=== PATIENT | male | born 1960 | race African-American/Black ===

== ENCOUNTER 2021-05-21 01:26 | Inpatient (IN) | payer MEDICARE, MEDICAID ==
[~2021-05-21] VITALS: Ht 177.8 cm; Wt 108.9 kg
[~2021-05-21 01:26] MED LIST: AMLO-258 PO; ASPI-1198 PO; DIVA-80 PO; FOLI-130 PO; LEVO25TA9 PO; NACL1 PO; OLAN7.5T22 PO; PHEN100C23 PO
[2021-05-21 02:10] LABS: BASOPHILS % (AUTO) 0.2 % (0.0-2.0); EOSINOPHILS % (AUTO) 1.2 % (1.0-6.0); HEMATOCRIT 34.1 % (41-53); HEMOGLOBIN 10.7 g/dL (13.5-17.5); LYMPHOCYTES % (AUTO) 26.2 % (22.0-44.0); MEAN CORPUSCULAR HEMOGLOBIN 29.2 pg (26.0-34.0); MEAN CORPUSCULAR HGB CONC 31.5 G/dL (31.0-37.0); MEAN CORPUSCULAR VOLUME 93 fL (80-100); MONOCYTES # (AUTO) 0.8 K/uL (0.1-1.0); MONOCYTES % (AUTO) 10.3 % (2.0-9.0); NEUTROPHILS # (AUTO) 4.8 K/uL (1.8-7.7); NEUTROPHILS % (AUTO) 62.1 % (40.0-70.0); PLATELET COUNT (AUTO) 214 K/uL (150-450); RED BLOOD CELL COUNT(AUTO) 3.68 MIL/uL (4.50-5.90); RED CELL DISTRIBUTION WIDTH 13.3 % (11.5-14.5)
[2021-05-21 02:15] LABS: ANION GAP 6 mmol/L (8-16); CALCIUM, TOTAL 8.5 mg/dL (8.8-10.5); CARBON DIOXIDE 29 mmol/L (22-29); CHLORIDE 107 mmol/L (98-107); GLOMERULAR FILTR. RATE CALC > 60 mL/min (>60); GLUCOSE,RANDOM 103 mg/dL (70-110); POTASSIUM 3.5 mmol/L (3.5-5.1); SODIUM SERUM 142 mmol/L (136-145); UREA NITROGEN, BLOOD 26 mg/dL (7-18)
[2021-05-21 02:20] LABS: ALANINE AMINOTRANSFERASE 26 U/L (12-78); ALBUMIN 3.7 g/dL (3.4-5.0); ALKALINE PHOSPHATASE 72 U/L (46-116); ASPARTATE AMINOTRANSFERASE 18 U/L (15-37); BILIRUBIN,TOTAL 0.4 mg/dL (0.1-1.0); TOTAL PROTEIN, SERUM 7.1 g/dL (6.4-8.2)
[2021-05-21 02:24] LABS: COVID AG,FIA SOURCE NASOPHARYNGEAL
[2021-05-21] MEDS ORDERED: OLANZapine 5 MG RAPDIS TABLET PO PRN (02:30)
[2021-05-21] MEDS ORDERED: ZOLPIDEM TARTRATE 10 MG TABLET PO PRN (02:30)
[2021-05-21] MEDS ORDERED: LORazepam 2 MG TABLET PO PRN (02:30)
[2021-05-21 04:12] LABS: CREATINE KINASE, TOTAL ONLY 295 U/L (39-308); FREE T4 (FREE THYROXINE) 1.01 ng/dL (0.76-1.46); THYROID STIMULATING HORMONE 3.16 uIU/mL (0.36-3.74)
[2021-05-21 04:14] LABS: VALPROIC ACID < 3 mcg/mL (50-100)
[2021-05-21 04:15] LABS: B-TYPE NATRIURETIC PEPTIDE 8 pg/mL (0-100)
[2021-05-21] MEDS ORDERED: MAGNESIUM HYDROXIDE SUSPENSION 30 ML UDCUP PO PRN (08:45)
[2021-05-21] MEDS ORDERED: LOPERAMIDE HCL 2 MG CAPSULE PO PRN (08:45)
[2021-05-21] MEDS ORDERED: MAG HYDROX/AL HYDROX/SIMETH ES 30 ML SUSPENSION UDCUP PO PRN (08:45)
[2021-05-21] MEDS ORDERED: PALIPERIDONE PALMITATE 234 MG/1.5 ML SYRINGE IM ONE (08:45)
[2021-05-21] MEDS ORDERED: CYANOCOBALAMIN 1,000 MCG/ML VIAL IM ONE (08:45)
[2021-05-21] MEDS ORDERED: GuaiFENesin/D-METHORPHAN [SUGAR-FREE] 200-20MG/10 ML SYRUP UDCUP PO PRN (08:45)
[2021-05-21] MEDS ORDERED: PROMETHAZINE HCL 25 MG TABLET PO PRN (08:45)
[2021-05-21] MEDS ORDERED: HydrOXYzine PAMOATE 50 MG CAPSULE PO PRN (08:45)
[2021-05-21] MEDS ORDERED: TUBERCULIN, PURIFIED PROTEIN DERIVATIVE 5 TU/0.1 ML SYRINGE ID ONE (08:45)
[2021-05-21] MEDS ORDERED: ACETAMINOPHEN 325 MG TABLET PO PRN (08:45)
[2021-05-21] MEDS: THIAMINE 100 MG TABLET PO SCH ×2 (09:00→16:57)
[2021-05-21 10:00] VITALS: BP 153/98
[2021-05-21] MEDS: OMEGA-3/DHA/EPA/FISH OIL 1,000 MG CAPSULE PO SCH (12:38)
[2021-05-21] MEDS: PHENYTOIN SODIUM 100 MG ER CAPSULE PO SCH ×2 (12:38→16:57)
[2021-05-21] MEDS: NALTREXONE HCL 50 MG TABLET PO SCH (12:38)
[2021-05-21] MEDS: FOLIC ACID 1 MG TABLET PO SCH (12:39)
[2021-05-21] MEDS: MULTIVITAMINS WITH MINERALS, THERAPEUTIC TABLET PO SCH (12:39)
[2021-05-21] MEDS ORDERED: CloNIDine HCL 0.1 MG TABLET PO PRN (13:30)
[2021-05-21] MEDS ORDERED: PHENYTOIN SODIUM 100 MG ER CAPSULE PO SCH (17:00)
[2021-05-21 17:02] VITALS: BP 173/98
[2021-05-21] MEDS: AmLODIPine BESYLATE 10 MG TABLET PO SCH (17:05)
[2021-05-21] MEDS: DIVALPROEX SODIUM 500 MG ER TABLET PO SCH (20:08)
[2021-05-21] MEDS: MELATONIN 5 MG TABLET PO SCH (20:08)
[2021-05-21] MEDS: OLANZapine 5 MG RAPDIS TABLET PO SCH (20:08)
[2021-05-21 20:36] VITALS: BP 130/75
[2021-05-22 02:38] VITALS: BP 136/88
[2021-05-22] MEDS: LEVOTHYROXINE SODIUM 25 MCG TABLET PO SCH (06:44)
[2021-05-22] MEDS: OMEGA-3/DHA/EPA/FISH OIL 1,000 MG CAPSULE PO SCH (08:57)
[2021-05-22] MEDS: THIAMINE 100 MG TABLET PO SCH ×2 (08:57→17:00)
[2021-05-22] MEDS: NALTREXONE HCL 50 MG TABLET PO SCH (08:57)
[2021-05-22] MEDS: MULTIVITAMINS WITH MINERALS, THERAPEUTIC TABLET PO SCH (08:57)
[2021-05-22] MEDS: FOLIC ACID 1 MG TABLET PO SCH (08:57)
[2021-05-22] MEDS: AmLODIPine BESYLATE 10 MG TABLET PO SCH (08:57)
[2021-05-22] MEDS: PHENYTOIN SODIUM 100 MG ER CAPSULE PO SCH ×2 (08:57→17:01)
[2021-05-22] MEDS: FLUoxetine HCL 10 MG CAPSULE PO SCH (08:58)
[2021-05-22 09:08] VITALS: BP 116/67
[2021-05-22 16:27] VITALS: BP 127/64
[2021-05-22] MEDS: DIVALPROEX SODIUM 500 MG ER TABLET PO SCH (20:22)
[2021-05-22] MEDS: MELATONIN 5 MG TABLET PO SCH (20:22)
[2021-05-22] MEDS: OLANZapine 5 MG RAPDIS TABLET PO SCH (20:22)
[2021-05-23 00:51] VITALS: BP 119/67
[2021-05-23] MEDS: LEVOTHYROXINE SODIUM 25 MCG TABLET PO SCH (06:30)
[2021-05-23 08:24] VITALS: BP 138/97
[2021-05-23] MEDS: MULTIVITAMINS WITH MINERALS, THERAPEUTIC TABLET PO SCH (09:17)
[2021-05-23] MEDS: OMEGA-3/DHA/EPA/FISH OIL 1,000 MG CAPSULE PO SCH (09:17)
[2021-05-23] MEDS: AmLODIPine BESYLATE 10 MG TABLET PO SCH (09:17)
[2021-05-23] MEDS: THIAMINE 100 MG TABLET PO SCH ×2 (09:18→16:36)
[2021-05-23] MEDS: PHENYTOIN SODIUM 100 MG ER CAPSULE PO SCH ×2 (09:18→16:37)
[2021-05-23] MEDS: FLUoxetine HCL 10 MG CAPSULE PO SCH (09:18)
[2021-05-23] MEDS: FOLIC ACID 1 MG TABLET PO SCH (09:18)
[2021-05-23] MEDS: NALTREXONE HCL 50 MG TABLET PO SCH (09:18)
[2021-05-23 16:25] VITALS: BP 140/83
[2021-05-23] MEDS: DIVALPROEX SODIUM 500 MG ER TABLET PO SCH (20:10)
[2021-05-23] MEDS: MELATONIN 5 MG TABLET PO SCH (20:10)
[2021-05-23] MEDS: OLANZapine 5 MG RAPDIS TABLET PO SCH (20:10)
[2021-05-24 01:05] VITALS: BP 126/79
[2021-05-24] MEDS: LEVOTHYROXINE SODIUM 25 MCG TABLET PO SCH (06:41)
[2021-05-24] MEDS: THIAMINE 100 MG TABLET PO SCH ×2 (09:54→16:39)
[2021-05-24] MEDS: OMEGA-3/DHA/EPA/FISH OIL 1,000 MG CAPSULE PO SCH (09:54)
[2021-05-24] MEDS: NALTREXONE HCL 50 MG TABLET PO SCH (09:54)
[2021-05-24] MEDS: AmLODIPine BESYLATE 10 MG TABLET PO SCH (09:54)
[2021-05-24] MEDS: PHENYTOIN SODIUM 100 MG ER CAPSULE PO SCH ×2 (09:54→16:39)
[2021-05-24] MEDS: FLUoxetine HCL 10 MG CAPSULE PO SCH (09:55)
[2021-05-24] MEDS: MULTIVITAMINS WITH MINERALS, THERAPEUTIC TABLET PO SCH (09:55)
[2021-05-24] MEDS: FOLIC ACID 1 MG TABLET PO SCH (09:55)
[2021-05-24] MEDS: DIVALPROEX SODIUM 500 MG ER TABLET PO SCH (20:39)
[2021-05-24] MEDS: MELATONIN 5 MG TABLET PO SCH (20:39)
[2021-05-24] MEDS: OLANZapine 5 MG RAPDIS TABLET PO SCH (20:39)
[2021-05-24] MEDS ORDERED: LORazepam 0.5 MG TABLET PO PRN (22:30)
[2021-05-25] MEDS: LEVOTHYROXINE SODIUM 25 MCG TABLET PO SCH (06:48)
[2021-05-25 08:33] VITALS: BP 131/87
[2021-05-25] MEDS ORDERED: PALIPERIDONE PALMITATE 156 MG/ML SYRINGE IM ONE (09:00)
[2021-05-25] MEDS: PHENYTOIN SODIUM 100 MG ER CAPSULE PO SCH ×2 (09:42→17:01)
[2021-05-25] MEDS: OMEGA-3/DHA/EPA/FISH OIL 1,000 MG CAPSULE PO SCH (09:42)
[2021-05-25] MEDS: NALTREXONE HCL 50 MG TABLET PO SCH (09:43)
[2021-05-25] MEDS: THIAMINE 100 MG TABLET PO SCH ×2 (09:43→17:01)
[2021-05-25] MEDS: FOLIC ACID 1 MG TABLET PO SCH (09:43)
[2021-05-25] MEDS: FLUoxetine HCL 10 MG CAPSULE PO SCH (09:43)
[2021-05-25] MEDS: MULTIVITAMINS WITH MINERALS, THERAPEUTIC TABLET PO SCH (09:43)
[2021-05-25] MEDS: AmLODIPine BESYLATE 10 MG TABLET PO SCH (09:44)
[2021-05-25] MEDS: MELATONIN 5 MG TABLET PO SCH (20:41)
[2021-05-25] MEDS: DIVALPROEX SODIUM 500 MG ER TABLET PO SCH (20:41)
[2021-05-26 05:58] VITALS: BP 130/85
[2021-05-26] MEDS: LEVOTHYROXINE SODIUM 25 MCG TABLET PO SCH (06:52)
[2021-05-26 07:44] LABS: COVID AG,FIA SOURCE NASOPHARYNGEAL
[2021-05-26] MEDS: FLUoxetine HCL 10 MG CAPSULE PO SCH (08:07)
[2021-05-26] MEDS: NALTREXONE HCL 50 MG TABLET PO SCH (08:07)
[2021-05-26] MEDS: THIAMINE 100 MG TABLET PO SCH ×2 (08:08→16:17)
[2021-05-26] MEDS: MULTIVITAMINS WITH MINERALS, THERAPEUTIC TABLET PO SCH (08:08)
[2021-05-26] MEDS: FOLIC ACID 1 MG TABLET PO SCH (08:08)
[2021-05-26] MEDS: AmLODIPine BESYLATE 10 MG TABLET PO SCH (08:08)
[2021-05-26] MEDS: PHENYTOIN SODIUM 100 MG ER CAPSULE PO SCH ×2 (08:08→16:17)
[2021-05-26] MEDS: OMEGA-3/DHA/EPA/FISH OIL 1,000 MG CAPSULE PO SCH (08:08)
[2021-05-26 12:18] VITALS: BP 142/86
[2021-05-26] MEDS ORDERED: PALI117D IM (14:31)
[2021-05-26] MEDS ORDERED: MELA5TAB40 PO (14:31)
[2021-05-26] MEDS ORDERED: OMEG-135 PO (14:31)
[2021-05-26] MEDS ORDERED: PROZ10 PO (14:31)
[2021-05-26] MEDS ORDERED: DIVA-80 PO (14:31)
[2021-05-26] MEDS ORDERED: NALT50TA PO (14:31)
[2021-05-26] MEDS ORDERED: PHENY100 PO (14:31)
[2021-05-26 16:22] VITALS: BP 135/71
[2021-05-26] MEDS ORDERED: FLUO10TA3 PO (17:14)
== END 2021-05-26 18:00 | disposition home or self-care (01) | DRG 885 ==
LOC: EMS 01:28 → B2S 05:31
PROVIDERS: ADMIT Psychiatry & Neurology Psychiatry; ATTEND Psychiatry & Neurology Psychiatry
DX: F25.9 Schizoaffective disorder, unspecified (principal); N18.9 Chronic kidney disease, unspecified; R45.851 Suicidal ideations; D64.9 Anemia, unspecified; E03.9 Hypothyroidism, unspecified; Z20.822 Contact with and (suspected) exposure to COVID-19; E78.00 Pure hypercholesterolemia, unspecified; F15.90 Other stimulant use, unspecified, uncomplicated; I12.9 Hypertensive chronic kidney disease with stage 1 through stage 4 chronic kidney disease, or unspecified chronic kidney disease; F17.210 Nicotine dependence, cigarettes, uncomplicated; R56.9 Unspecified convulsions; Z55.9 Problems related to education and literacy, unspecified; Z59.9 Problem related to housing and economic circumstances, unspecified; Z63.9 Problem related to primary support group, unspecified; Z65.3 Problems related to other legal circumstances; Z91.19 Patient's noncompliance with other medical treatment and regimen
CPT/HCPCS: 80053; 80164; 82550; 83880; 84439; 84443; 84484; 85025; 93005; 99285; G0480; J3420; Q9967